=== PATIENT | female | born 1985 | race Two or more races ===

== ENCOUNTER 2019-10-10 16:08 | Emergency (ER) | payer OTHER ==
[~2019-10-10] VITALS: Ht 157.5 cm; Wt 86.2 kg
[2019-10-10] MEDS ORDERED: OXYBUTYNIN CHLORIDE 5 MG TABLET PO ONE (16:30)
[2019-10-10] MEDS ORDERED: HYDROXYCHLOROQUINE 200 MG TABLET PO SCH (16:30)
--- NOTE | 2019-10-10 16:30 | NUR ---
PATIENT NAM, FROM LONGTERM, CAME IN FOR MEDICAL CLEARANCE FOR [facility]AY TO BOOK. PATIENT A/O X 4. NO ACUTE DISTRESS. HANDCUFFED TO BED. WILL CONTINUE TO MONITOR ACCORDINGLY
--- NOTE | 2019-10-10 16:50 | NUR ---
PATIENT DISCHARGED WITH [employer] CUSTODY. PATIENT IN STABLE CONDITION. WRITTEN AND VERBAL AFTER CARE INSTRUCTIONS GIVEN. WRITTEN PRESCRIPTION GIVEN TO PATIENT AND VERBALIZED UNDERSTANDING. LEFT UNIT AMBULATORY WITH CUSTODY. AWARE
[2019-10-10 16:51] VITALS: BP 126/71
== END 2019-10-10 16:51 ==
LOC: ER 16:21
DX: M32.9 Systemic lupus erythematosus, unspecified (principal); N32.81 Overactive bladder; Z76.0 Encounter for issue of repeat prescription; G40.909 Epilepsy, unspecified, not intractable, without status epilepticus; Z86.73 Personal history of transient ischemic attack (TIA), and cerebral infarction without residual deficits